=== PATIENT | male | born 1990 | race Caucasian/White ===

== ENCOUNTER 2017-03-07 17:15 | Emergency (ER) | payer OTHER ==
[~2017-03-07] VITALS: Ht 175.3 cm; Wt 89.0 kg
[2017-03-07 17:18] VITALS: Ht 175.3 cm; Wt 89.0 kg
--- NOTE | 2017-03-07 18:38 | ERA ---
ER Documentation Chief Complaint Date/Time DATE: 03/07/17 TIME: 18:31 Chief Complaint BACK PAIN HPI 26-year-old male presents with a chief complaint of back pain. Patient's back pain is chronic 6 months. States the pain right now is 2 out of 10. Patient developed new symptoms 4-5 days ago - numbness of the feet. Patient denies mechanism of injury, history of cancer, recent illness,, saddle anesthesia, incontinence, urinary retention, or IVDU. No similar symptoms in the past. Has not taken any medication to relieve the symptoms. Went to urgent care earlier today that symptom here. No progression of symptoms throughout the last 4 days. No aggravating or alleviating factors. Denies focal to ambulating. Patient has no other complaints and describes no other associated manifestations. Nursing notes have been reviewed and are consistent with history given. ROS All systems reviewed and are negative except as per history of present illness. PMhx/Soc Medical and Surgical Hx: pt denies Medical Hx, pt denies Surgical Hx Hx Alcohol Use: Yes Hx Substance Use: No Hx Tobacco Use: No Smoking Status: Never smoker Physical Exam Vitals Vital Signs Date Time Temp Pulse Resp B/P Pulse Ox O2 Delivery O2 Flow Rate FiO2 03/07/17 17:18 98.3 78 18 142/78 99 Physical Exam Const: Well-appearing 26-year-old male in no acute distress Head: Atraumatic Eyes: Normal Conjunctiva ENT: Normal External Ears, Nose and Mouth. Neck: Full range of motion..~ No meningismus. Resp: Clear to auscultation bilaterally Cardio: Regular rate and rhythm, no murmurs. Posterior tibial and dorsalis pedis pulses 2+ bilaterally. Patellar reflexes equal bilaterally. Abd: Soft, non tender, non distended. Normal bowel sounds Skin: No petechiae or rashes Back: No midline or flank tenderness. No paraspinal tenderness. Range of motion intact. Ext: No cyanosis, or edema. Neur: Awake and alert. Neurovascularly intact bilaterally. [id number] intact. Psych: Normal Mood and Affect Procedures/MDM Otherwise healthy 26-year-old male in no acute distress presenting with a chief complaint of back pain. States that the back pain is currently 2 out of 10. Neurologically intact bilaterally. Full range of motion. Able to ambulate. No indication at this time for CT or MRI imaging. Most likely diagnosis is paresthesia of lower extremities of unknown etiology. I presented the case to my attending Dr. De Jesus who agrees with the assessment and plan. Thus, the treatment plan will include outpatient follow-up with neurologist and ibuprofen for discomfort as well as conservative therapy which has been discussed with the patient. Patient says he has a neurologist so follow-up will be no problem within the next 2-3 days. At this time I do not suspect cauda equina syndrome, spinal cord compression, aortic involvement, epidural abscess, obstructive nephrolithiasis, pyelonephritis, or other neurovascular compromise. I have spoke with the patient regarding their condition and future management. They have verbally responded that they understand their status and treatment plan. The patients vitals are stable, and their current condition is appropriate for discharge. The patient will be given discharge instructions with return precautions. Departure Diagnosis: Primary Impression: Back pain Qualified Code: M54.5 - Chronic low back pain without sciatica, unspecified back pain laterality Condition: Stable Patient Instructions: Numbness Referrals: SHAYNE BRITTON MD,MEENU WELLER,TONJA MOCK MD, MD,NORMA GOINS,TEZ PEREZ,MADISON ARMSTRONG,SUNSHINE FINN,ALEXA PITTMAN MD,MARQUIS POND,NAIDA VERDUZCO,MARK Kwong MD Additional Instructions: Follow up with your PCP within the next 1-3 days for a more thorough evaluation and a possible referral to a specialist. If you are unable to contact PCP, follow-up with neurologist. A list of neurologists have been given to you in this packet. Return the the emergency department immediately if symptoms worsen or change. If you have any questions regarding medications, ask your pharmacist or us before you leave. If any adverse reactions occur while taking your medications, discontinue the treatment and return to the emergency department immediately. Take your medications as directed, and complete the entire course of treatment. OVIDIO POLANCO PA-C Mar 07, 2017 18:38
== END 2017-03-07 18:35 | disposition home or self-care (01) ==
LOC: FTE 17:15
DX: M54.5 Low back pain (principal)
CPT/HCPCS: 99282